=== PATIENT | female | born 1985 | race Hispanic/Latino ===

== ENCOUNTER 2018-04-10 13:00 | Emergency (ER) | payer OTHER, SELFPAY ==
[2018-04-10] MEDS ORDERED: DICYCLOMINE HCL 10 MG CAP ONE (14:19)
[2018-04-10] MEDS ORDERED: NA CHLORIDE 0.9% 1,000 ML ONE (14:19)
[2018-04-10] MEDS ORDERED: ONDANSETRON 4 MG/2 ML VIAL ONE (14:19)
[2018-04-10] MEDS ORDERED: FAMOTIDINE 20 MG/2 ML VIAL IV ONE (14:20)
[2018-04-10 14:32] LABS: Urine Bacteria <20 /HPF (<20); Urine Culture Reflex Order NOT NEEDED; Urine RBC <5 /HPF (NONE SEEN)
[2018-04-10 14:41] LABS: Absolute Lymphocytes (CBC) 2.1 K/uL (0.7-4.9); Absolute Monocytes 0.7 K/uL (0.1-1.3); Absolute Neutrophil 7.2 K/uL (1.8-8.0); Basophils % 0.3 % (0-1.3); Eosinophils % 3.6 % (0-4.4); Hematocrit 38.2 % (36.0-45.0); Lymphocytes % 20.6 % (15.3-44.8); MCH 30.8 pg (27.0-35.0); MCV 87.9 fL (80-100); MPV 11.6 fL (7.6-11.3); Monocytes % 6.3 % (3.3-12.3); RBC Red Blood Cell Count 4.34 M/uL (3.86-4.86)
[2018-04-10 14:49] LABS: ALT/SGPT 104 U/L (12-78); AST/SGOT 67 U/L (15-37); Albumin 3.4 g/dL (3.4-5.0); Alkaline Phosphatase 114 U/L (45-117); Amylase Level 38 U/L (25-115); BUN Blood Urea Nitrogen 12 mg/dL (7-18); Bicarbonate 25 mmol/L (21-32); Bilirubin Direct 0.1 mg/dL (0-0.2); Bilirubin Total 0.5 mg/dL (0.2-1.0); Glucose Level 110 mg/dL (74-106); Lipase 158 U/L (73-393); Magnesium 1.9 mg/dL (1.8-2.4); Phosphorus 3.6 mg/dL (2.5-4.9); Potassium 3.9 mmol/L (3.5-5.1); Protein, Total 7.7 g/dL (6.4-8.2); Sodium Level 138 mmol/L (136-145)
[2018-04-10 15:17] LABS: Urine Blood NEGATIVE (NEG); Urine Glucose NEGATIVE (NEG); Urine Protein NEGATIVE (NEG); Urine Specific Gravity 1.025 (1.005-1.030)
--- NOTE | 2018-04-10 16:45 | RAD REPORT ---
EXAM DESCRIPTION: CT - Abdomen Pelvis W Contrast - 04/10/2018 4:16 pm CLINICAL HISTORY: Abdominal pain, nausea, diarrhea COMPARISON: CT study April 2014 TECHNIQUE: Biphasic, helical CT imaging of the abdomen and pelvis was performed following 100 ml non -ionic IV contrast. Oral contrast was given. All CT scans are performed using dose optimization technique as appropriate and may include automated exposure control or mA/KV adjustment according to patient size. FINDINGS: No suspicious findings in the lung bases. Liver shows diffuse fatty infiltration pattern with no focal liver lesion. Liver is generous in size. Spleen and pancreas are unremarkable. Cholecystectomy clips are present. No biliary tree dilatation. Symmetric renal function is seen with no hydronephrosis or suspicious renal mass. No pyelonephritis o r acute renal parenchymal process. No adrenal gland abnormality. Uterus is unremarkable. No right ova ry abnormality. Left ovary contains a 4.2 centimeter homogeneous cyst. No rupture or hemorrhage compo nent seen. No dilated bowel loops or bowel wall thickening. No appendicitis. No free air, free fluid or inflamma tory stranding. No mass or bulky lymphadenopathy. A 3 centimeter fat only abdominal wall hernia seen left inferior margin of the umbilicus. There is an additional small fat only umbilical hernia. No suspicious bony findings. IMPRESSION: No acute GI abnormality identifiable. No surgically emergent finding. Approximately 4 centimeter left ovarian cyst with no hemorrhage or rupture component. Umbilical and left periumbilical fat only hernias. No acute components. Diffuse fatty infiltration of the liver.
--- NOTE | 2018-04-10 17:21 | EDPHYS ---
Physician Documentation [facility] Name: Ofelia Nguyen Age: 32 yrs Sex: Female : 1985 Arrival Date: 04/10/2018 Time: 13:04 Bed 19 Private MD: None, None ED Physician Clay Conroy HPI: 04/10 13:50 This 32 yrs old Female presents to ER via Ambulatory with complaints of cp Abdominal Pain, Sore Throat, Diarrhea. 13:50 The patient presents with abdominal pain that is diffuse. cp 13:50 Onset: The symptoms/episode began/occurred gradually. cp 13:50 Associated signs and symptoms: Pertinent positives: nausea and vomiting, anorexia, cp diarrhea, sore throat, burning in throat, Pertinent negatives: blood in stools, constipation, fever, headache, shortness of breath, vaginal discharge. The symptoms are described as crampy. Patient returns returning from [place] 2 weeks ago. Denies recent use of antibiotics. Patient reports being prescribed medicine after onset of symptoms by physician in [place]. 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 - Social history:: Smoking status: unknown. - Ebola Screening: : No symptoms or risks identified at this time. ROS: 14:00 Constitutional: Negative for body aches, chills, fever, weight loss. cp 14:00 Eyes: Negative for injury, pain, redness, and discharge. cp 14:00 ENT: Positive for sore throat, Negative for drainage from ear(s), ear pain, rhinorrhea, difficulty swallowing, difficulty handling secretions, hoarseness. 14:00 Neck: Negative for pain with movement, pain at rest, stiffness, tenderness. 14:00 Cardiovascular: Negative for chest pain, edema, palpitations. 14:00 Respiratory: Negative for cough, shortness of breath, wheezing. 14:00 Abdomen/GI: Positive for abdominal pain, nausea and vomiting, diarrhea, abdominal cramps, anorexia, Negative for dysphagia, hematemesis, black/tarry stool, rectal pain, rectal bleeding. 14:00 : Negative for urinary symptoms, flank pain, vaginal bleeding, vaginal discharge. 14:00 Skin: Negative for cellulitis, rash. 14:00 Neuro: Negative for altered mental status, headache, syncope, near syncope, weakness. 14:00 All other systems are negative. Exam: 14:12 Constitutional: The patient appears in no acute distress, alert, awake, non-toxic, well cp developed, well nourished. 14:12 Head/Face: Normocephalic, atraumatic. cp 14:12 Eyes: Periorbital structures: appear normal, Conjunctiva: normal, no exudate, no injection, Sclera: no appreciated abnormality, Lids and lashes: appear normal, bilaterally. 14:12 ENT: External ear(s): are unremarkable, Ear canal(s): are normal, clear, TM's: bulging, is not appreciated, bilaterally, dullness, bilaterally, erythema, is not appreciated, bilaterally, Nose: is normal, Mouth: Lips: moist, Oral mucosa: moist, Posterior pharynx: Airway: no evidence of obstruction, patent, Tonsils: with erythema, no enlargement, no exudate, Uvula: midline, swelling, is not appreciated, erythema, that is mild, exudate, is not appreciated. 14:12 Neck: ROM/movement: is normal, is supple, without pain, no range of motions limitations, no nuchal rigidity. 14:12 Chest/axilla: Inspection: normal, Palpation: is normal, no crepitus, no tenderness. 14:12 Cardiovascular: Rate: normal, Rhythm: regular. 14:12 Respiratory: the patient does not display signs of respiratory distress, Respirations: normal, no use of accessory muscles, no retractions, no splinting, no tachypnea, labored breathing, is not present, Breath sounds: are clear throughout, no decreased breath sounds, no stridor, no wheezing. 14:12 Abdomen/GI: Inspection: obese Bowel sounds: active, all quadrants, Palpation: soft, in all quadrants, moderate abdominal tenderness, in the right lower quadrant and left lower quadrant, rebound tenderness, is not appreciated, involuntary guarding, is not appreciated. 14:12 Back: pain, is absent, ROM is normal. 14:12 Skin: cellulitis, is not appreciated, no rash present. 14:12 Neuro: Orientation: to person, place \T\ time. Mentation: lucid, able to follow commands, Cerebellar function: is grossly normal, Motor: moves all fours, strength is normal, Sensation: no obvious gross deficits. Vital Signs: 13:09 BP 148 / 101; Pulse 79; Resp 16; Temp 97.0(TE); Pulse Ox 100% on R/A; Weight 108.86 kg; la1 Height 5 ft. 4 in. (162.56 cm); 14:39 BP 135 / 92; Pulse 85; Resp 18; Pulse Ox 100% on R/A; hj 15:50 BP 117 / 85; Pulse 70; Resp 18; Pulse Ox 100% on R/A; hj 16:41 BP 118 / 87; Pulse 70; Resp 18; Pulse Ox 100% on R/A; hj 17:37 BP 117 / 85; Pulse 72; Resp 18; Pulse Ox 100% on R/A; hj 13:09 Body Mass Index 41.20 (108.86 kg, 162.56 cm) la1 MDM: 13:16 Patient medically screened. cp 17:05 Data reviewed: vital signs, nurses notes, lab test result(s), radiologic studies, CT cp scan. 17:18 ED course: Patient unable to provide stool sample. cp 17:18 Counseling: I had a detailed discussion with the patient and/or guardian regarding: the cp historical points, exam findings, and any diagnostic results supporting the discharge/admit diagnosis, lab results, radiology results, the need for outpatient follow up, a health information clerk, to return to the emergency department if symptoms worsen or persist or if there are any questions or concerns that arise at home. Response to treatment: the patient's symptoms have markedly improved after treatment, VSS. Pain improved. Will treat for strep throat and traveler's diarrhea with oral Zithromax and discharge to home for continued monitoring. 04/10 13:45 Order name: Strep; Complete Time: 15:08 cp 04/10 15:08 Interpretation: Abnormal: GP A STREP SC \T\nbsp; GROUP A STREP SCREEN-- \T\nbsp; \T\nbsp; cp POSITIVE. 04/10 13:45 Order name: Amylase, Serum; Complete Time: 15:08 cp 04/10 13:45 Order name: Basic Metabolic Panel; Complete Time: 15:08 cp 04/10 15:08 Interpretation: Normal except: GLUC 110; CRE 0.50. cp 04/10 13:45 Order name: CBC with Diff; Complete Time: 15:08 cp 04/10 15:08 Interpretation: Normal except: MPV 11.6. cp 04/10 13:45 Order name: Creatinine for Radiology; Complete Time: 15:08 cp 04/10 13:45 Order name: Hepatic Function; Complete Time: 15:08 cp 16 15:08 Interpretation: Normal except: AST 67; ALT 104; GLOB 4.3; A/G 0.8. cp 04/10 13:45 Order name: Lipase; Complete Time: 15:08 cp 04/10 13:45 Order name: Urine Microscopic Only; Complete Time: 15:08 cp 04/10 13:45 Order name: Magnesium; Complete Time: 15:08 cp 04/10 13:45 Order name: Phosphorus; Complete Time: 15:08 cp 04/10 14:13 Order name: Urine Dipstick--Ancillary (enter results); Complete Time: 16:52 ag 04/10 14:13 Order name: Urine --Ancillary (enter results); Complete Time: 16:52 ag 04/10 13:45 Order name: Urine Test (obtain specimen); Complete Time: 16:00 cp 04/10 13:45 Order name: IV Saline Lock; Complete Time: 14:26 cp 04/10 13:45 Order name: Labs collected and sent; Complete Time: 14:26 cp 04/10 13:45 Order name: Urine Dipstick-Ancillary (obtain specimen); Complete Time: 14:11 cp 04/10 13:58 Order name: CT Abd/Pelvis - W/Contrast: may give oral contrast; Complete Time: 16:52 cp Administered Medications: 13:45 Drug: Bentyl 20 mg Route: PO; hj 14:41 Follow up: Response: No adverse reaction hj 13:45 Drug: Zofran 4 mg Route: IVP; Site: right antecubital; hj 14:41 Follow up: Response: No adverse reaction hj 13:54 Drug: Pepcid 20 mg Route: IVP; Site: right antecubital; hj 14:41 Follow up: Response: No adverse reaction hj 13:54 Drug: NS 0.9% 1000 ml Route: IV; Rate: 1 bolus; Site: right antecubital; hj 15:30 Follow up: IV Status: Completed infusion; IV Intake: 1000ml 17:26 Drug: Zithromax 500 mg Route: PO; 17:45 Follow up: Response: No adverse reaction Disposition: 04/10/18 17:20 Discharged to Home. Impression: Diarrhea, unspecified - Traveler's, Streptococcal pharyngitis, Other ovarian cysts - Left. - Condition is Stable. - Discharge Instructions: Food Choices to Help Relieve Diarrhea, Adult, Diarrhea, Adult, Ovarian Cyst. - Prescriptions for Bentyl 20 mg Oral Tablet - take 2 tablets by ORAL route every 6 hours As needed; 30 tablet. Zofran 4 mg Oral Tablet - take 1 tablet by ORAL route every 12 hours As needed; 20 tablet. Zithromax Z- John 250 mg Oral Tablet - take 1 tablet by ORAL route as directed for 5 days Day 1 - take two (2) tablets one time. Day 2, 3, 4 , 5 take one (1) tablet once daily.; 6 tablet. - Medication Reconciliation Form, Thank You Letter, Antibiotic Education, Prescription Opioid Use form. - Follow up: Catarina Hare MD; When: 2 - 3 days; Reason: Recheck today's complaints. Follow up: Linda Nuñez MD; When: 1 week; Reason: left ovarian cyst. - Problem is new. - Symptoms have improved. Signatures: Dispatcher [employer] EDMS Eldon Caicedo RN RN la1 Mitchell Long RN RN Matthew Pat PA PA cp Corrections: (The following items were deleted from the chart) 17:29 17:20 04/10/2018 17:20 Discharged to Home. Impression: Diarrhea, unspecified - cp Traveler's; Streptococcal pharyngitis. Condition is Stable. Forms are Medication Reconciliation Form, Thank You Letter, Antibiotic Education, Prescription Opioid Use. Follow up: Catarina Hare; When: 2 - 3 days; Reason: Recheck today's complaints. Problem is new. Symptoms have improved. cp 17:30 17:29 04/10/2018 17:20 Discharged to Home. Impression: Diarrhea, unspecified - cp Traveler's; Streptococcal pharyngitis; Other ovarian cysts - Left. Condition is Stable. Discharge Instructions: Food Choices to Help Relieve Diarrhea, Adult, Diarrhea, Adult. Prescriptions for Bentyl 20 mg Oral Tablet - take 2 tablets by ORAL route every 6 hours As needed; 30 tablet, Zofran 4 mg Oral Tablet - take 1 tablet by ORAL route every 12 hours As needed; 20 tablet, Zithromax Z-John 250 mg Oral Tablet - take 1 tablet by ORAL route as directed for 5 days Day 1 - take two (2) tablets one time. Day 2, 3, 4 , 5 take one (1) tablet once daily.; 6 tablet. and Forms are Medication Reconciliation Form, Thank You Letter, Antibiotic Education, Prescription Opioid Use. Follow up: Catarina Hare; When: 2 - 3 days; Reason: Recheck today's complaints. Problem is new. Symptoms have improved. cp 17:44 17:30 04/10/2018 17:20 Discharged to Home. Impression: Diarrhea, unspecified - hj Traveler's; Streptococcal pharyngitis; Other ovarian cysts - Left. Condition is Stable. Discharge Instructions: Food Choices to Help Relieve Diarrhea, Adult, Diarrhea, Adult, Ovarian Cyst. Prescriptions for Bentyl 20 mg Oral Tablet - take 2 tablets by ORAL route every 6 hours As needed; 30 tablet, Zofran 4 mg Oral Tablet - take 1 tablet by ORAL route every 12 hours As needed; 20 tablet, Zithromax Z-John 250 mg Oral Tablet - take 1 tablet by ORAL route as directed for 5 days Day 1 - take two (2) tablets one time. Day 2, 3, 4 , 5 take one (1) tablet once daily.; 6 tablet. and Forms are Medication Reconciliation Form, Thank You Letter, Antibiotic Education, Prescription Opioid Use. Follow up: Catarina Hare; When: 2 - 3 days; Reason: Recheck today's complaints. Follow up: Linda Nuñez; When: 1 week; Reason: left ovarian cyst. Problem is new. Symptoms have improved. cp
--- NOTE | 2018-04-10 17:21 | ER ---
Nurse's Notes [facility] Name: Ofelia Nguyen Age: 32 yrs Sex: Female : 1985 Arrival Date: 04/10/2018 Time: 13:04 Bed 19 Private MD: None, None Diagnosis: Diarrhea, unspecified-Traveler's;Streptococcal pharyngitis;Other ovarian cysts-Left Presentation: 04/10 13:08 Presenting complaint: Patient states: I have been having abd pain, nausea, diarrhea la1 after a trip to [place], I have a burning in my throat every time after I eat and get diarrhea every time. Transition of care: patient was not received from another setting of care. Onset of symptoms was April 10, 2018. Risk Assessment: Do you want to hurt yourself or someone else? Patient reports no desire to harm self or others. Initial Sepsis Screen: Does the patient meet any 2 criteria? RR > 20 per min. Does the patient have a suspected source of infection? No. Patient's initial sepsis screen is negative. Care prior to arrival: None. 13:08 Method Of Arrival: Ambulatory la1 13:08 Acuity: BAM 3 la1 Triage Assessment: 13:08 General: Appears in no apparent distress. uncomfortable, Behavior is calm, cooperative, hj appropriate for age. Pain: Complains of pain in abdomen. EENT: No signs and/or symptoms were reported regarding the EENT system. Neuro: Level of Consciousness is awake, alert, obeys commands, Oriented to person, place, time, situation, Appropriate for age. Cardiovascular: Capillary refill < 3 seconds Patient's skin is warm and dry. Respiratory: Airway is patent Respiratory effort is even, unlabored, Respiratory pattern is regular, symmetrical. GI: Reports lower abdominal pain, upper abdominal pain, diarrhea, nausea. : No signs and/or symptoms were reported regarding the genitourinary system. Derm: No signs and/or symptoms reported regarding the dermatologic system. Musculoskeletal: No signs and/or symptoms reported regarding the musculoskeletal system. 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 - Social history:: Smoking status: unknown. - Ebola Screening: : No symptoms or risks identified at this time. Screenin:08 Abuse screen: Denies threats or abuse. Denies injuries from another. Nutritional hj screening: No deficits noted. Tuberculosis screening: No symptoms or risk factors identified. Fall Risk None identified. Assessment: 13:08 Reassessment: see triage for assessment;. hj 13:08 GI: Bowel sounds present X 4 quads. Abd is soft Abdomen is tender to palpation. hj 14:00 Reassessment: Patient and/or family updated on plan of care and expected duration. Pain hj level reassessed. Patient is alert, oriented x 3, equal unlabored respirations, skin warm/dry/pink. awaiting results and POC;. 14:38 Reassessment: Patient and/or family updated on plan of care and expected duration. Pain hj level reassessed. Patient is alert, oriented x 3, equal unlabored respirations, skin warm/dry/pink. family in room;. 14:40 Reassessment: pt finished contrast, mobile service rv technician notified;. hj 15:50 Reassessment: Patient and/or family updated on plan of care and expected duration. Pain hj level reassessed. Patient is alert, oriented x 3, equal unlabored respirations, skin warm/dry/pink. awaiting CT abd; Patient states feeling better. Patient states symptoms have improved. 15:55 Reassessment: Patient and/or family updated on plan of care and expected duration. Pain hj level reassessed. Patient is alert, oriented x 3, equal unlabored respirations, skin warm/dry/pink. wheeled to CT;. 16:10 Reassessment: Patient and/or family updated on plan of care and expected duration. Pain hj level reassessed. Patient is alert, oriented x 3, equal unlabored respirations, skin warm/dry/pink. wheeled back to room;. 17:37 Reassessment: Patient and/or family updated on plan of care and expected duration. Pain hj level reassessed. Patient is alert, oriented x 3, equal unlabored respirations, skin warm/dry/pink. awaiting stool sample; unable to give specimen;. Vital Signs: 13:09 BP 148 / 101; Pulse 79; Resp 16; Temp 97.0(TE); Pulse Ox 100% on R/A; Weight 108.86 kg; la1 Height 5 ft. 4 in. (162.56 cm); 14:39 BP 135 / 92; Pulse 85; Resp 18; Pulse Ox 100% on R/A; hj 15:50 BP 117 / 85; Pulse 70; Resp 18; Pulse Ox 100% on R/A; hj 16:41 BP 118 / 87; Pulse 70; Resp 18; Pulse Ox 100% on R/A; hj 17:37 BP 117 / 85; Pulse 72; Resp 18; Pulse Ox 100% on R/A; hj 13:09 Body Mass Index 41.20 (108.86 kg, 162.56 cm) la1 ED Course: 13:04 Patient arrived in ED. mr 13:04 None, None is Private Physician. mr 13:09 Triage completed. la1 13:10 Arm band placed on left wrist. la1 13:10 Patient has correct armband on for positive identification. Bed in low position. Call hj light in reach. Side rails up X 1. Adult w/ patient. 13:11 Matthew Rivas PA is PHCP. cp 13:11 Clay Conroy MD is Attending Physician. cp 13:18 Mitchell Long, [place] is Primary Nurse. hj 14:10 Urine collected: clean catch specimen, clear. 5 14:10 Initial lab(s) drawn, by md, sent to lab. EKG done, by ED staff, reviewed by Clay Conroy MD. Inserted saline lock: 22 gauge in right antecubital area, using aseptic technique. Blood collected. 14:11 Urine Microscopic Only Sent. 5 16:13 CT completed. Patient moved to CT via wheelchair. Patient moved back from CT. cw1 16:16 CT Abd/Pelvis - W/Contrast: may give oral contrast In Process Unspecified. EDMS 17:19 Catarina Hare MD is Referral Physician. cp 17:30 Linda Nuñez MD is Referral Physician. cp 17:44 No provider procedures requiring assistance completed. IV discontinued, intact, hj bleeding controlled, No redness/swelling at site. Pressure dressing applied. Administered Medications: 13:45 Drug: Bentyl 20 mg Route: PO; hj 14:41 Follow up: Response: No adverse reaction 13:45 Drug: Zofran 4 mg Route: IVP; Site: right antecubital; hj 14:41 Follow up: Response: No adverse reaction hj 13:54 Drug: Pepcid 20 mg Route: IVP; Site: right antecubital; hj 14:41 Follow up: Response: No adverse reaction hj 13:54 Drug: NS 0.9% 1000 ml Route: IV; Rate: 1 bolus; Site: right antecubital; hj 15:30 Follow up: IV Status: Completed infusion; IV Intake: 1000ml hj 17:26 Drug: Zithromax 500 mg Route: PO; hj 17:45 Follow up: Response: No adverse reaction hj Intake: 15:30 IV: 1000ml; Total: 1000ml. Outcome: 17:20 Discharge ordered by MD. saira 17:44 Discharged to home ambulatory, with family. hj 17:44 Condition: stable 17:44 Discharge instructions given to patient, family, Instructed on discharge instructions, follow up and referral plans. medication usage, Demonstrated understanding of instructions, follow-up care, medications, Prescriptions given X 3. 17:44 Patient left the ED. Signatures: Dispatcher [employer] Nae Acuña Mary Jo Yung cw1 Eldon Caicedo, RN RN la1 Mitchell Long RN RN hj Page, Corey, PA PA cp Martinez, [facility]
[2018-04-10] MEDS ORDERED: AZITHROMYCIN 250 MG TAB ONE (17:34)
== END 2018-04-10 17:44 | disposition home or self-care (01) ==
LOC: ER 13:00
DX: J02.0 Streptococcal pharyngitis (principal); N83.292 Other ovarian cyst, left side
CPT/HCPCS: 36415; 74177; 80048; 80076; 81003; 81015; 81025; 82150; 83690; 83735; 84100; 85025; 87081; 96361; 96374; 96375; 99284; J2405; J7030; Q9967

== ENCOUNTER 2019-08-14 08:19 | Emergency (ER) | payer OTHER, SELFPAY ==
--- NOTE | 2019-08-14 09:51 | RAD REPORT ---
EXAM DESCRIPTION: RAD - Ankle Left 3 View - 08/14/2019 9:04 am CLINICAL HISTORY: PAIN COMPARISON: None FINDINGS: Left ankle left foot-multiple projections are submitted No acute fracture or dislocation seen. No aggressive marrow lesion. Small posterior calcaneal spur.
--- NOTE | 2019-08-14 09:56 | EDPHYS ---
Physician Documentation [facility] Name: Ofelia Nguyen Age: 33 yrs Sex: Female : 1985 Arrival Date: 08/14/2019 Time: 08: Bed 13 Private MD: Matthew Wright HPI: 08/14 08:49 This 33 yrs old Female presents to ER via Ambulatory with complaints of Ankle kb Pain. 08:49 The patient presents with pain. The complaints affect the left ankle. Onset: The kb symptoms/episode began/occurred 1.5 month(s) ago. Context: The problem was sustained at home, resulted from twisting, The mechanism of injury is unknown. The patient can fully bear weight on the affected extremity. the patient is able to ambulate, without difficulty. Associated signs and symptoms: Pertinent positives: swelling, Pertinent negatives: calf tenderness, fever, nausea, numbness, rash, tingling, vomiting, warmth, weakness. Modifying factors: The symptoms are alleviated by nothing, the symptoms are aggravated by weight bearing. Severity of symptoms: At their worst the symptoms were moderate, in the emergency department the symptoms are unchanged. The patient has not experienced similar symptoms in the past. The patient has been recently seen by a physician:. Pt reports left ankle and foot pain for 1.5 months. States she twisted her ankle 3 times in one week and has had pain since then. States she went to the [place] to see a dr for this pain twice since it started. States they told her it was a sprain without doing x-rays. She then went further into [place] for [place] and got a throat infection so she asked about her ankle when she went to the dr for that. They told her to keep a wrap on it and use a walker. States it still hasn't gotten better so that is why she came here today. Ambulates with steady gait with no apparent discomfort.. Historical: - Allergies: 08:42 No Known Allergies; ss - Home Meds: 08:42 levothyroxine 112 mcg tab 1 tab once daily [Active]; ss - PMHx: 08:42 Hypothyroidism; ss - PSHx: 08:42 Cholecystectomy; ; hand surgery; ss - Immunization history:: Adult Immunizations up to date. - Social history:: Smoking status: Patient denies any tobacco usage or history of. - Ebola Screening: : Patient denies exposure to infectious person Patient denies travel to an Ebola-affected area in the 21 days before illness onset. ROS: 08:47 Constitutional: Negative for fever, chills, and weight loss, Neck: Negative for injury, kb pain, and swelling, Cardiovascular: Negative for chest pain, palpitations, and edema, Respiratory: Negative for shortness of breath, cough, wheezing, and pleuritic chest pain, Abdomen/GI: Negative for abdominal pain, nausea, vomiting, diarrhea, and constipation, Back: Negative for injury and pain, : Negative for injury, bleeding, discharge, and swelling, Skin: Negative for injury, rash, and discoloration, Neuro: Negative for headache, weakness, numbness, tingling, and seizure. 08:47 MS/extremity: Positive for pain, of the left lateral ankle and dorsum of left foot. Exam: 08:47 Constitutional: This is a well developed, well nourished patient who is awake, alert, kb and in no acute distress. Head/Face: Normocephalic, atraumatic. Neck: Trachea midline, no thyromegaly or masses palpated, and no cervical lymphadenopathy. Supple, full range of motion without nuchal rigidity, or vertebral point tenderness. No Meningismus. Chest/axilla: Normal chest wall appearance and motion. Nontender with no deformity. No lesions are appreciated. Cardiovascular: Regular rate and rhythm with a normal S1 and S2. No gallops, murmurs, or rubs. Normal PMI, no JVD. No pulse deficits. Respiratory: Lungs have equal breath sounds bilaterally, clear to auscultation and percussion. No rales, rhonchi or wheezes noted. No increased work of breathing, no retractions or nasal flaring. Abdomen/GI: Soft, non-tender, with normal bowel sounds. No distension or tympany. No guarding or rebound. No evidence of tenderness throughout. Back: No spinal tenderness. No costovertebral tenderness. Full range of motion. Skin: Warm, dry with normal turgor. Normal color with no rashes, no lesions, and no evidence of cellulitis. MS/ Extremity: Pulses equal, no cyanosis. Neurovascular intact. Full, normal range of motion. Neuro: Awake and alert, GCS 15, oriented to person, place, time, and situation. Cranial nerves II-XII grossly intact. Motor strength 5/5 in all extremities. Sensory grossly intact. Cerebellar exam normal. Normal gait. Vital Signs: 08:42 BP 128 / 96; Pulse 73; Resp 16; Temp 98.2(TE); Pulse Ox 100% on R/A; Weight 112.04 kg; ss Height 5 ft. 4 in. (162.56 cm); Pain 6/10; 10:02 BP 118 / 85; Pulse 72; Resp 16 S; Pulse Ox 99% on R/A; ca1 08:42 Body Mass Index 42.40 (112.04 kg, 162.56 cm) ss MDM: 08:25 Patient medically screened. kb 08:47 Data reviewed: vital signs, nurses notes. Data interpreted: Pulse oximetry: on room air kb is 100 %. Interpretation: normal. 09:54 Counseling: I had a detailed discussion with the patient and/or guardian regarding: the kb historical points, exam findings, and any diagnostic results supporting the discharge/admit diagnosis, radiology results, the need for outpatient follow up, a orthopedic surgeon, to return to the emergency department if symptoms worsen or persist or if there are any questions or concerns that arise at home. 08/14 08:29 Order name: Foot Left 3 View XRAY kb 08/14 08:29 Order name: Ankle Left 3 View XRAY; Complete Time: 09:54 kb Administered Medications: No medications were administered Disposition: 08/15 07:44 Co-signature as Attending Physician, Matthew Shetty MD I agree with the assessment and brandi plan of care. Disposition: 08/14/19 09:55 Discharged to Home. Impression: Pain in left ankle and joints of left foot. - Condition is Stable. - Discharge Instructions: Musculoskeletal Pain, Ankle Pain. - Medication Reconciliation Form, Thank You Letter, Antibiotic Education, Prescription Opioid Use form. - Follow up: Emergency Department; When: As needed; Reason: Worsening of condition. Follow up: Private Physician; When: 2 - 3 days; Reason: Recheck today's complaints, Continuance of care, Re-evaluation by your physician. Signatures: Dispatcher [employer] Corry Alberto, PATIENT COORDINATOR FRONT DESKClaudiaC AYANA-Matthew Stover MD MD cha Smirch, Shelby, RN RN Acob, Josy, RN RN ca1 Corrections: (The following items were deleted from the chart) 08/14 10:07 09:55 08/14/2019 09:55 Discharged to Home. Impression: Pain in left ankle and joints of ca1 left foot. Condition is Stable. Forms are Medication Reconciliation Form, Thank You Letter, Antibiotic Education, Prescription Opioid Use. Follow up: Emergency Department; When: As needed; Reason: Worsening of condition. Follow up: Private Physician; When: 2 - 3 days; Reason: Recheck today's complaints, Continuance of care, Re-evaluation by your physician. kb
--- NOTE | 2019-08-14 09:56 | ER ---
Nurse's Notes [facility] Name: Ofelia Nguyen Age: 33 yrs Sex: Female : 1985 Arrival Date: 08/14/2019 Time: 08:22 Bed 13 Private MD: Diagnosis: Pain in left ankle and joints of left foot Presentation: 08/14 08:34 Presenting complaint: Patient states: L ankle pain x 1.5 months. Denies injury. Pt was ss seen by a doctor in [place] twice and was told that it was her ligaments. Never had an XRAY obtained. No swelling noted to area. Transition of care: patient was not received from another setting of care. Onset of symptoms is unknown. Risk Assessment: Do you want to hurt yourself or someone else? Patient reports no desire to harm self or others. Initial Sepsis Screen: Does the patient meet any 2 criteria? No. Patient's initial sepsis screen is negative. Does the patient have a suspected source of infection? No. Patient's initial sepsis screen is negative. Care prior to arrival: None. 08:34 Method Of Arrival: Ambulatory ss 08:34 Acuity: BAM 4 ss Historical: - Allergies: 08:42 No Known Allergies; ss - Home Meds: 08:42 levothyroxine 112 mcg tab 1 tab once daily [Active]; ss - PMHx: 08:42 Hypothyroidism; ss - PSHx: 08:42 Cholecystectomy; ; hand surgery; ss - Immunization history:: Adult Immunizations up to date. - Social history:: Smoking status: Patient denies any tobacco usage or history of. - Ebola Screening: : Patient denies exposure to infectious person Patient denies travel to an Ebola-affected area in the 21 days before illness onset. Screenin:44 Abuse screen: Denies threats or abuse. Denies injuries from another. Nutritional ss screening: No deficits noted. Tuberculosis screening: Never had TB. Fall Risk None identified. Assessment: 08:44 General: Appears in no apparent distress. comfortable, Behavior is calm, cooperative. ss Pain: Complains of pain in L ankle Pain currently is 6 out of 10 on a pain scale. Quality of pain is described as aching, tender, Pain began 1.5 months ago Is continuous. Neuro: Level of Consciousness is awake, alert, obeys commands, Oriented to person, place, time, situation. Cardiovascular: Capillary refill < 3 seconds is brisk in bilateral fingers. Respiratory: Airway is patent Respiratory effort is even, unlabored, Respiratory pattern is regular, symmetrical. GI: Patient currently denies nausea, vomiting. : No signs and/or symptoms were reported regarding the genitourinary system. EENT: Nares are clear. Derm: Musculoskeletal: Circulation, motion, and sensation intact. Range of motion: intact in all extremities, Swelling absent. Vital Signs: 08:42 BP 128 / 96; Pulse 73; Resp 16; Temp 98.2(TE); Pulse Ox 100% on R/A; Weight 112.04 kg; ss Height 5 ft. 4 in. (162.56 cm); Pain 6/10; 10:02 BP 118 / 85; Pulse 72; Resp 16 S; Pulse Ox 99% on R/A; ca1 08:42 Body Mass Index 42.40 (112.04 kg, 162.56 cm) ED Course: 08:22 Patient arrived in ED. ag5 08:25 Corry Bass FNP-C is [facility]. kb 08:25 Matthew Shetty MD is Attending Physician. kb 08:33 Luke Barroso, RN is Primary Nurse. bp 08:41 Triage completed. ss 08:42 Arm band placed on right wrist. ss 08:44 Patient has correct armband on for positive identification. Bed in low position. Call ss light in reach. 09:04 Foot Left 3 View XRAY In Process Unspecified. EDMS 09:04 Ankle Left 3 View XRAY In Process Unspecified. EDMS 10:07 No provider procedures requiring assistance completed. Patient did not have IV access ca1 during this emergency room visit. Administered Medications: No medications were administered Outcome: 09:55 Discharge ordered by . kb 10:07 Discharged to home ambulatory. ca1 10:07 Condition: stable 10:07 Discharge instructions given to patient, Instructed on discharge instructions, follow up and referral plans. Demonstrated understanding of instructions, follow-up care. 10:07 Patient left the ED. ca1 Signatures: Dispatcher [employer] EDMS Corry Bass FNP-C FNP-Ckb Smirch, Shelby, RN RN Luke Barroso RN RN bp Acob, Cheryl, RN RN [facility] Jes Mcleod ag5
[2019-08-14 10:26] VITALS: TEMP 98.2
[2019-08-14 10:28] VITALS: BP 118/85; O2SAT 99
== END 2019-08-14 10:07 | disposition home or self-care (01) ==
LOC: ER 08:19
DX: M25.572 Pain in left ankle and joints of left foot (principal); E03.9 Hypothyroidism, unspecified
CPT/HCPCS: 99283